=== PATIENT | female | born 1945 | race Caucasian/White ===

== ENCOUNTER → 2017-10-31 11:56 | Outpatient (CLI) | payer MEDICARE, OTHER ==
[~2017-10-31 11:56] MED LIST: ANASTROZOLE1 MG PO; EPITOL200 MG PO; PROPRANOLOL HCL20 MG PO; SYNTHROID125 MCG PO
== END | disposition home or self-care (01) ==
LOC: D.LABREF 11:56
DX: M17.11 Unilateral primary osteoarthritis, right knee (principal); Z11.8 Encounter for screening for other infectious and parasitic diseases

== ENCOUNTER 2017-11-20 05:46 | Inpatient (IN) | payer MEDICARE, OTHER | END 2017-11-23 14:24 | disposition home health service (06) | DRG 470 | LOC: D.SDCHOLD 05:46 → D.MS 13:56 | PROC: 0SRC0J9 Replacement of Right Knee Joint with Synthetic Substitute, Cemented, Open Approach (ICD-10-PCS; principal; 2017-11-20) | DX: M17.11 Unilateral primary osteoarthritis, right knee (principal); E78.5 Hyperlipidemia, unspecified; Z85.3 Personal history of malignant neoplasm of breast ==

== ENCOUNTER → 2018-05-06 10:11 | Outpatient (CLI) | payer MEDICARE, OTHER ==
[~2018-05-06 10:11] MED LIST changes: +ATARAX 25 MG TA25 MG PO; +ELIQUIS2.5 MG PO; +KEFLEX500 MG PO; +OXYCODONE HCL5 MG PO
== END | disposition home or self-care (01) ==
LOC: D.MRI 10:11
DX: M51.36 Other intervertebral disc degeneration, lumbar region (principal)